=== PATIENT | male | born 1995 | race Caucasian/White ===

== ENCOUNTER 2017-12-18 03:18 | Emergency (ER) | payer SELFPAY ==
[~2017-12-18] VITALS: Ht 170.2 cm; Wt 90.0 kg
[2017-12-18 03:44] VITALS: BP 131/74
[2017-12-18] MEDS ORDERED: KETOROLAC TROMETHAMINE 60 MG/2 ML VIAL IM ONE (03:45)
== END 2017-12-18 04:35 | disposition home or self-care (01) ==
LOC: EMS 03:18
DX: S20.219A Contusion of unspecified front wall of thorax, initial encounter (principal); M94.8X8 Other specified disorders of cartilage, other site; X58.XXXA Exposure to other specified factors, initial encounter; Y93.89 Activity, other specified; Y92.89 Other specified places as the place of occurrence of the external cause; Y99.8 Other external cause status
CPT/HCPCS: 71045; 93005; 96372; 99284; J1885

== ENCOUNTER 2018-07-11 09:02 | Emergency (ER) | payer SELFPAY ==
[~2018-07-11] VITALS: Ht 170.2 cm; Wt 93.2 kg
[2018-07-11 11:02] VITALS: BP 132/76
== END 2018-07-11 11:53 | disposition home or self-care (01) ==
LOC: EMS 09:05
DX: J04.10 Acute tracheitis without obstruction (principal); J34.89 Other specified disorders of nose and nasal sinuses